=== PATIENT | female | born 1975 | race Caucasian/White ===

== ENCOUNTER 2024-05-30 22:34 | Emergency (ER) | payer OTHER ==
[2024-05-30 23:22] LABS: #Basophils Less than 0.03 10x3/uL (0.0-0.2); #Eosinophils Less than 0.03 10x3/uL (0.0-0.7); %Lymphocytes 7.7 % (21.0-51.0); %Monocytes 0.5 % (0.0-10.0); %Neutrophils 91.5 % (42.0-75.0); Hematocrit 31.4 % (36.0-47.0); Mean Corpuscular HGB CONC 31.8 g/dL (32.0-36.0); Mean Corpuscular Hemoglobin 26.8 pg (27.0-31.0); Mean Corpuscular Volume 84.2 fL (78.0-98.0); Mean Platelet Volume 9.6 fL (7.4-10.4); Platelet Count 332 10x3/uL (130-400); RBC Distribution Width 15.6 % (11.5-14.5); Red Blood Cell (RBC) Count 3.73 mill/uL (4.20-5.40)
[2024-05-30 23:37] LABS: ALT (SGPT) 8 U/L (8-55); AST (SGOT) 13 U/L (5-34); Albumin 4.2 g/dL (3.5-5.0); Alkaline Phosphatase 44 U/L (40-110); Anion Gap 15 mmol/L (10-20); BUN (Urea Nitrogen) 9 mg/dL (7.0-18.7); Bilirubin, Total 0.3 mg/dL (0.2-1.2); Calc. Creatinine Clearance 0 mL/min (70-130); Calcium 10.1 mg/dL (7.8-10.44); Carbon Dioxide 22 mmol/L (22-29); Chloride 104 mmol/L (98-107); Estimated GFR 107; Globulin 3.4 g/dL (2.4-3.5); Glucose 155 mg/dL (70-105); Potassium 3.8 mmol/L (3.5-5.1); Protein, Total 7.6 g/dL (6.0-8.3); Sodium 137 mmol/L (136-145)
[2024-05-30 23:43] LABS: Troponin I Less than 0.010 ng/mL (< 0.028)
[2024-05-30] MEDS ORDERED: Acetaminophen 500 MG TAB ONE (23:43)
[2024-05-30] MEDS ORDERED: Ketorolac Tromethamine 30 MG (1 mL) VIAL ONE (23:43)
[2024-05-30 23:54] LABS: BHCG - Serum Negative (NEGATIVE); Pregs Control Background? CLEAR/WHITE (CLR/WHITE); Pregs Control Bar Appear? YES (CONTROL BAR)
[2024-05-31] MEDS ORDERED: Mag-Al 1200 mg/1200 mg/30 ML UDCUP ONE (00:05)
[2024-05-31] MEDS ORDERED: Lidocaine Viscous Sol 2% 15 ml UD Cup ONE (00:06)
[2024-05-31] MEDS ORDERED: Famotidine/PF 20 mg/2ml Vial ONE (00:06)
[2024-05-31 00:21] LABS: Bacteria/HPF None Seen HPF (None Seen); Bilirubin Negative (Negative); Blood, Urine Negative (Negative); CAUTI Indications for Culture Pelvic or flank pain; Clarity Clear (Clear); Glucose, Urine (Dipstick) Normal (Negative); Ketone, Urine 40 mg/dL (Negative); Leukocyte Negative Leu/uL (Negative); Nitrite Negative (Negative); Protein, Urine (Dipstick) Negative (Neg-Trace); RBC/HPF 0-3 HPF (0-3); Specific Gravity, Urine 1.011 (1.002-1.036); Squamous Epithelial 0-3 HPF (0-3); Urobilinogen Normal mg/dL (Less than 2); WBC/HPF 0-3 HPF (0-3)
[2024-05-31 00:22] LABS: Urine Culture Reflex No No
== END 2024-05-31 01:22 | disposition home or self-care (01) ==
LOC: ERS 22:34
DX: R07.89 Other chest pain (principal)
CPT/HCPCS: 36415; 71045; 80053; 81001; 83880; 84484; 84703; 85025; 85379; 87428; 93005; 96374; 96375; J1885; J3490

== ENCOUNTER 2024-06-06 15:03 | Inpatient (IN) | payer OTHER ==
[~2024-06-06 15:03] MED LIST: Iopamidol-370 76% 500 ML MDV (1 ML CHARGE) ONE
[2024-06-06] MEDS ORDERED: Mag-Al 1200 mg/1200 mg/30 ML UDCUP ONE (15:26)
[2024-06-06] MEDS ORDERED: Lidocaine Viscous Sol 2% 15 ml UD Cup ONE (15:27)
[2024-06-06 15:38] LABS: #Basophils 0.03 10x3/uL (0.0-0.2); #Eosinophils Less than 0.03 10x3/uL (0.0-0.7); %Basophils 0.3 % (0.0-1.0); %Eosinophils 0.1 % (0.0-10.0); %Lymphocytes 35.6 % (21.0-51.0); %Monocytes 6.5 % (0.0-10.0); %Neutrophils 57.3 % (42.0-75.0); Hematocrit 32.2 % (36.0-47.0); Hemoglobin 10.4 g/dL (12.0-16.0); Mean Corpuscular HGB CONC 32.3 g/dL (32.0-36.0); Mean Corpuscular Hemoglobin 26.9 pg (27.0-31.0); Mean Corpuscular Volume 83.2 fL (78.0-98.0); Mean Platelet Volume 9.4 fL (7.4-10.4); Platelet Count 374 10x3/uL (130-400); RBC Distribution Width 14.7 % (11.5-14.5); Red Blood Cell (RBC) Count 3.87 mill/uL (4.20-5.40)
[2024-06-06] MEDS ORDERED: Famotidine 20 MG TAB ONE (15:50)
[2024-06-06 15:59] LABS: Troponin I Less than 0.010 ng/mL (< 0.028)
[2024-06-06 16:13] LABS: ALT (SGPT) 12 U/L (8-55); AST (SGOT) 10 U/L (5-34); Albumin 4.2 g/dL (3.5-5.0); Alkaline Phosphatase 40 U/L (40-110); Anion Gap 13 mmol/L (10-20); BUN (Urea Nitrogen) 15 mg/dL (7.0-18.7); Bilirubin, Total 0.3 mg/dL (0.2-1.2); Calc. Creatinine Clearance 0 mL/min (70-130); Calcium 9.8 mg/dL (7.8-10.44); Carbon Dioxide 24 mmol/L (22-29); Chloride 104 mmol/L (98-107); Estimated GFR 101; Globulin 2.7 g/dL (2.4-3.5); Glucose 95 mg/dL (70-105); Potassium 3.8 mmol/L (3.5-5.1); Protein, Total 6.9 g/dL (6.0-8.3); Sodium 137 mmol/L (136-145)
[2024-06-06 16:22] LABS: Bacteria/HPF None Seen HPF (None Seen); Bilirubin Negative (Negative); Blood, Urine Negative (Negative); CAUTI Indications for Culture Alt mental st,lethar; Clarity Clear (Clear); Glucose, Urine (Dipstick) Normal (Negative); Ketone, Urine Negative (Negative); Leukocyte 250 Leu/uL (Negative); Nitrite Negative (Negative); Protein, Urine (Dipstick) Negative (Neg-Trace); RBC/HPF 0-3 HPF (0-3); Specific Gravity, Urine 1.011 (1.002-1.036); Urobilinogen Normal mg/dL (Less than 2); WBC/HPF 0-3 HPF (0-3); pH, Urine 6.5 (5.0-9.0)
[2024-06-06 16:22] LABS: Acetaminophen Less than 10 mcg/mL (Less than 10); Alcohol Less than 10.0 mg/dL (Less than 10); Salicylate Less than 8.0 mg/dL (Less than 8.0)
[2024-06-06 16:23] LABS: Amphetamine Not Detected (NotDetected); Barbiturates Screen Not Detected (NotDetected); Benzodiazepine Screen Not Detected (NotDetected); Cocaine Metabolite Screen Not Detected (NotDetected); Methadone Not Detected (NotDetected); Methamphetamine Not Detected (NotDetected); Opiate Screen Not Detected (NotDetected); Oxycodone Screen Not Detected (NotDetected); Phencyclidine (PCP) Not Detected (NotDetected); THC/Cannabinoid Screen Not Detected (NotDetected); Tricyclic Screen Not Detected (NotDetected); Urine Culture Reflex No No
[2024-06-06] MEDS ORDERED: LORazepam 2 MG/ML SYR.(CARPUJECT) ONE (16:23)
[2024-06-06] MEDS ORDERED: Ondansetron PF 4 MG/2 ML Vial IVP PRN (19:27)
[2024-06-06] MEDS ORDERED: Acetaminophen 650 MG Suppository PR PRN (19:27)
[2024-06-06] MEDS ORDERED: Ondansetron ODT 4 MG TAB PO PRN (19:27)
[2024-06-06 20:39] LABS: Cardiac Risk 4.3 (Less than 4.5)
[2024-06-06 21:40] VITALS: BMI 20.5
[2024-06-06] MEDS: Atorvastatin Calcium 40 MG TAB PO SCH (22:51)
[2024-06-06] MEDS: Famotidine 20 MG TAB PO SCH (22:51)
[2024-06-07 04:54] LABS: #Basophils Less than 0.03 10x3/uL (0.0-0.2); #Eosinophils Less than 0.03 10x3/uL (0.0-0.7); %Basophils 0.3 % (0.0-1.0); %Lymphocytes 39.3 % (21.0-51.0); %Monocytes 7.4 % (0.0-10.0); %Neutrophils 52.9 % (42.0-75.0); Hemoglobin 11.4 g/dL (12.0-16.0); Mean Corpuscular HGB CONC 32.6 g/dL (32.0-36.0); Mean Corpuscular Hemoglobin 26.8 pg (27.0-31.0); Mean Corpuscular Volume 82.2 fL (78.0-98.0); Mean Platelet Volume 9.5 fL (7.4-10.4); Platelet Count 375 10x3/uL (130-400); RBC Distribution Width 14.6 % (11.5-14.5); Red Blood Cell (RBC) Count 4.26 mill/uL (4.20-5.40)
[2024-06-07 05:14] LABS: Anion Gap 12 mmol/L (10-20); BUN (Urea Nitrogen) 10 mg/dL (7.0-18.7); Calc. Creatinine Clearance 76 mL/min (70-130); Calcium 9.9 mg/dL (7.8-10.44); Carbon Dioxide 22 mmol/L (22-29); Chloride 106 mmol/L (98-107); Cholesterol 194 mg/dl (< 200 Desired); Estimated GFR 83; Glucose 91 mg/dL (70-105); HDL Cholesterol 48 mg/dL (>60 Neg Risk); LDL Cholesterol, Calculated 126 mg/dL; Magnesium 2.3 mg/dL (1.6-2.6); Sodium 136 mmol/L (136-145); Triglycerides 100 mg/dL (Less than 150)
[2024-06-07 05:20] LABS: Hemoglobin A1c 4.9 % (4.0-6.0)
[2024-06-07] MEDS: Aspirin 81 mg Enteric Coated Tablet PO SCH (08:15)
[2024-06-07] MEDS: Acetaminophen 325 MG TAB PO PRN (12:08)
[2024-06-07] MEDS: Enoxaparin 40 MG (0.4 mL) SYRINGE SC SCH (12:10)
[2024-06-07 12:29] LABS: Syphilis Antibody Nonreactive (Nonreactive); Syphilis Antibody Index 0.04 S/CO (<1.00 Non-Reactive)
[2024-06-08 05:17] LABS: #Basophils Less than 0.03 10x3/uL (0.0-0.2); #Eosinophils Less than 0.03 10x3/uL (0.0-0.7); %Basophils 0.2 % (0.0-1.0); %Lymphocytes 38.9 % (21.0-51.0); %Monocytes 7.6 % (0.0-10.0); %Neutrophils 53.1 % (42.0-75.0); Hematocrit 37.3 % (36.0-47.0); Hemoglobin 11.9 g/dL (12.0-16.0); Mean Corpuscular HGB CONC 31.9 g/dL (32.0-36.0); Mean Corpuscular Hemoglobin 25.9 pg (27.0-31.0); Mean Corpuscular Volume 81.1 fL (78.0-98.0); Mean Platelet Volume 9.8 fL (7.4-10.4); Platelet Count 390 10x3/uL (130-400); RBC Distribution Width 14.5 % (11.5-14.5)
[2024-06-08 05:38] LABS: Anion Gap 15 mmol/L (10-20); BUN (Urea Nitrogen) 13 mg/dL (7.0-18.7); Calc. Creatinine Clearance 82 mL/min (70-130); Calcium 9.8 mg/dL (7.8-10.44); Carbon Dioxide 22 mmol/L (22-29); Chloride 103 mmol/L (98-107); Estimated GFR 90; Glucose 104 mg/dL (70-105); Potassium 3.9 mmol/L (3.5-5.1); Sodium 136 mmol/L (136-145)
[2024-06-08 08:25] VITALS: TEMP 98.1
[2024-06-08 12:02] VITALS: BP 127/85
== END 2024-06-08 12:00 | disposition home or self-care (01) | DRG 72 ==
LOC: ERS 15:03 → ERHOLD 18:53 → SURG A 20:58
PROVIDERS: ADMIT Family Medicine; ATTEND Internal Medicine
PROC: XX20X89 Monitoring of Brain Electrical Activity, Computer-aided Detection and Notification, New Technology Group 9 (ICD-10-PCS; principal; 2024-06-06)
DX: G93.41 Metabolic encephalopathy (principal); R07.9 Chest pain, unspecified; Z88.8 Allergy status to other drugs, medicaments and biological substances; Z91.09 Other allergy status, other than to drugs and biological substances; Z91.012 Allergy to eggs; Z91.040 Latex allergy status; Z91.011 Allergy to milk products
CPT/HCPCS: 36415; 36416; 70450; 70496; 70498; 70551; 71045; 71275; 80048; 80053; 80061; 80306; 80307; 81001; 83036; 83735; 84146; 84443; 84484; 85025; 85379; 86780; 93306; 96374; J2060; Q9967

== ENCOUNTER 2025-03-24 15:10 | Outpatient (CLI) | payer OTHER | END 2025-03-24 15:11 | disposition home or self-care (01) | LOC: BICMAMMO 15:10 | PROVIDERS: ATTEND Physician Assistant | DX: Z12.31 Encounter for screening mammogram for malignant neoplasm of breast (principal); Z80.3 Family history of malignant neoplasm of breast | CPT/HCPCS: 77063; 77067 ==

== ENCOUNTER 2025-04-24 15:21 | Outpatient (CLI) | payer OTHER | END 2025-04-24 15:22 | disposition home or self-care (01) | LOC: BICRAD 15:21 | PROVIDERS: ATTEND Physician Assistant | DX: R07.9 Chest pain, unspecified (principal) | CPT/HCPCS: 71046 ==